=== PATIENT | male | born 1995 | race Caucasian/White ===

== ENCOUNTER 2023-01-31 12:05 | Inpatient (IN) ==
[2023-02-03] MEDS ORDERED: Senna TAB 8.6 mg TAB PO PRN (12:55)
[2023-02-03] MEDS ORDERED: Magnesium Hydroxide LIQ 30 ML UDC PO PRN (12:55)
[2023-02-03] MEDS ORDERED: Albuterol HFA INHALER 8 gm MDI INH PRN (19:29)
[2023-02-04] MEDS: Polyethylene Glycol 3350 17 GM PACKET PO SCH ×2 (07:40→07:58)
[2023-02-04] MEDS ORDERED: Ondansetron ODT 4 mg TAB 4 MG TAB PO ONE (08:15)
[2023-02-04] MEDS ORDERED: LevoCETirizine 5 mg TAB (NF) PO ONE (22:13)
[2023-02-04] MEDS: PTO: LevoCETirizine 5 mg TAB (NF) PO SCH (23:32)
[2023-02-05 07:30] LABS: Hematocrit 25.7 % (38-53); Hemoglobin 8.6 g/dL (13.2-16.3); Mean Corpuscular Hemoglobin 29.1 pg (27-33); Mean Corpuscular Hgb Conc 33.5 g/dL (31-36); Red Blood Count 2.95 10^6/uL (4.06-5.63); Red Cell Distribution Width 14.8 % (12-17)
[2023-02-05 07:38] LABS: Albumin 2.7 g/dL (3.2-5.2); Calcium 7.7 mg/dL (8.6-10.3); Potassium 4.1 mmol/L (3.5-5.0); Total Bilirubin 0.6 mg/dL (0.2-1.0)
[2023-02-05 07:44] LABS: Albumin/Globulin Ratio 0.7 (1-3); Creatinine, Serum 0.49 mg/dL (0.67-1.17); Globulin 3.8 g/dL (2-4); Total Protein 6.5 g/dL (6.4-8.9); eGFR CKD-EPI 145.1 (>60)
[2023-02-05 08:06] LABS: ABS Basophils 0.1 10^3/uL (0.0-0.1); ABS Eosinophils 0.1 10^3/uL (0.0-0.5); ABS Lymphocytes 1.4 10^3/uL (1.0-4.8); ABS Monocytes 1.7 10^3/uL (0.0-1.1); ABS Neutrophils 11.9 10^3/uL (1.5-7.6); ABS Nucleated RBC 0.01 10^3/ul; Eosinophil % 0.6 %; Mean Platelet Volume 6.5 fL (7.5-11.2); Nucleated Red Blood Cells % 0.1 /100 WBC (0.0-0.4); Platelet Count 1190 10^3/uL (150-450); Polychromasia 1+
[2023-02-05] MEDS: Polyethylene Glycol 3350 17 GM PACKET PO SCH (08:22)
[2023-02-05] MEDS: oxyCODONE SR 20 mg TAB PO SCH (21:25)
[2023-02-05] MEDS: PTO: LevoCETirizine 5 mg TAB (NF) PO SCH (21:26)
[2023-02-05 21:57] LABS: ABS Basophils 0.1 10^3/uL (0.0-0.1); ABS Eosinophils 0.1 10^3/uL (0.0-0.5); ABS Lymphocytes 1.3 10^3/uL (1.0-4.8); ABS Monocytes 1.1 10^3/uL (0.0-1.1); ABS Neutrophils 12.3 10^3/uL (1.5-7.6); ABS Nucleated RBC 0.01 10^3/ul; Eosinophil % 0.4 %; Hematocrit 26.7 % (38-53); Hemoglobin 8.9 g/dL (13.2-16.3); Lymphocyte % 8.6 %; Mean Corpuscular Hemoglobin 28.9 pg (27-33); Mean Corpuscular Hgb Conc 33.1 g/dL (31-36); Mean Corpuscular Volume 87.2 fL (80-97); Mean Platelet Volume 6.3 fL (7.5-11.2); Nucleated Red Blood Cells % 0.1 /100 WBC (0.0-0.4); Platelet Count 1354 10^3/uL (150-450); Red Blood Count 3.06 10^6/uL (4.06-5.63); Red Cell Distribution Width 15.2 % (12-17); White Blood Count 14.9 10^3/uL (3.6-10.2)
[2023-02-06] MEDS: oxyCODONE SR 20 mg TAB PO SCH ×2 (09:23→22:02)
[2023-02-06] MEDS: Polyethylene Glycol 3350 17 GM PACKET PO SCH (09:24)
[2023-02-06] MEDS ORDERED: Naloxone Nasal Spray 4 MG/0.1 ML NASAL.SPR INTRANASAL PRN (13:40)
[2023-02-06] MEDS ORDERED: Iohexol 350 (CONTRAST) 500 ML MDV IV ONE (13:54)
[2023-02-06] MEDS ORDERED: HYDROmorphone 1 MG/1 ML SYRINGE IV SLOW PU ONE (14:30)
[2023-02-06] MEDS ORDERED: Zosyn per Pharmacy NOTE FOLLOW UP SCH (20:00)
[2023-02-06] MEDS ORDERED: Piperacillin/Tazobac 3.375 BAG 3.375 GM/100 ML BAG IV ONE (20:00)
[2023-02-06] MEDS: PTO: LevoCETirizine 5 mg TAB (NF) PO SCH (22:04)
[2023-02-07] MEDS: ZOSYN 3.375 GM Q8H per EXTENDED INFUSION IV SCH ×2 (02:10→09:58)
[2023-02-07 07:43] LABS: ABS Eosinophils 0.1 10^3/uL (0.0-0.5); ABS Lymphocytes 1.4 10^3/uL (1.0-4.8); ABS Monocytes 1.3 10^3/uL (0.0-1.1); ABS Neutrophils 11.1 10^3/uL (1.5-7.6); ABS Nucleated RBC 0.01 10^3/ul; Eosinophil % 0.7 %; Hematocrit 29.2 % (38-53); Hemoglobin 9.7 g/dL (13.2-16.3); Lymphocyte % 10.3 %; Mean Corpuscular Hemoglobin 29.2 pg (27-33); Mean Corpuscular Hgb Conc 33.1 g/dL (31-36); Mean Corpuscular Volume 88.1 fL (80-97); Mean Platelet Volume 6.5 fL (7.5-11.2); Nucleated Red Blood Cells % 0.1 /100 WBC (0.0-0.4); Platelet Count 1443 10^3/uL (150-450); Red Blood Count 3.31 10^6/uL (4.06-5.63)
[2023-02-07] MEDS: oxyCODONE SR 20 mg TAB PO SCH (08:52)
[2023-02-07] MEDS: Polyethylene Glycol 3350 17 GM PACKET PO SCH (08:54)
[2023-02-07 11:38] LABS: Rapid COVID-19 Molecular Undetected (Undetected)
[2023-02-07] MEDS ORDERED: HYDROmorphone 1 MG/1 ML SYRINGE IV ONE (13:00)
[2023-02-07 14:16] VITALS: BP 116/48
== END 2023-02-07 13:58 | disposition short-term general hospital (02) | DRG 860 ==
LOC: PMRU 02-03 12:21
PROVIDERS: ADMIT Physical Medicine & Rehabilitation; ATTEND Physical Medicine & Rehabilitation

== ENCOUNTER 2023-02-24 08:30 | Inpatient (IN) ==
[2023-02-24] MEDS ORDERED: Senna TAB 8.6 mg TAB PO PRN (13:59)
[2023-02-24] MEDS ORDERED: Magnesium Hydroxide LIQ 30 ML UDC PO PRN (13:59)
[2023-02-24] MEDS ORDERED: HYDROmorphone 1 MG/1 ML SYRINGE IV SLOW PU ONE (14:06)
[2023-02-24] MEDS ORDERED: Zosyn per Pharmacy NOTE FOLLOW UP SCH (18:00)
[2023-02-24] MEDS: Piperacillin/Tazobactam 4.5 GM in NS 0.9% 100 ml BAG 100 ML IVPB SCH (19:30)
[2023-02-24] MEDS: Enoxaparin 40 MG/0.4 ML SYR SUBCUT SCH (21:10)
[2023-02-24] MEDS ORDERED: oxyCODONE SR 15 mg TAB PO ONE (21:27)
[2023-02-25] MEDS: Piperacillin/Tazobactam 4.5 GM in NS 0.9% 100 ml BAG 100 ML IVPB SCH ×4 (02:01→20:14)
[2023-02-25] MEDS: oxyCODONE SR 15 mg TAB PO SCH ×2 (08:27→20:14)
[2023-02-25] MEDS: Enoxaparin 40 MG/0.4 ML SYR SUBCUT SCH ×2 (08:28→20:17)
[2023-02-25 15:04] LABS: High Sensitivity Troponin 1 Hr < 3 pg/mL (<20)
[2023-02-26] MEDS: Piperacillin/Tazobactam 4.5 GM in NS 0.9% 100 ml BAG 100 ML IVPB SCH ×2 (04:55→15:02)
[2023-02-26 05:08] LABS: ABS Basophils 0.1 10^3/uL (0.0-0.1); ABS Eosinophils 0.2 10^3/uL (0.0-0.5); ABS Lymphocytes 1.8 10^3/uL (1.0-4.8); ABS Monocytes 0.7 10^3/uL (0.0-1.1); ABS Nucleated RBC 0.01 10^3/ul; Eosinophil % 2.4 %; Hematocrit 25.9 % (38-53); Hemoglobin 8.7 g/dL (13.2-16.3); Lymphocyte % 20.3 %; Mean Corpuscular Hemoglobin 28.9 pg (27-33); Mean Corpuscular Hgb Conc 33.6 g/dL (31-36); Mean Corpuscular Volume 85.9 fL (80-97); Mean Platelet Volume 6.1 fL (7.5-11.2); Nucleated Red Blood Cells % 0.1 /100 WBC (0.0-0.4); Platelet Count 476 10^3/uL (150-450); Red Blood Count 3.01 10^6/uL (4.06-5.63); Red Cell Distribution Width 16.2 % (12-17); White Blood Count 8.8 10^3/uL (3.6-10.2)
[2023-02-26 05:24] LABS: Albumin 2.5 g/dL (3.2-5.2); Albumin/Globulin Ratio 0.9 (1-3); Calcium 7.5 mg/dL (8.6-10.3); Creatinine, Serum 0.45 mg/dL (0.67-1.17); Globulin 2.9 g/dL (2-4); Potassium 3.1 mmol/L (3.5-5.0); Total Bilirubin 0.2 mg/dL (0.2-1.0); Total Protein 5.4 g/dL (6.4-8.9); eGFR CKD-EPI 148.9 (>60)
[2023-02-26] MEDS: oxyCODONE SR 15 mg TAB PO SCH ×2 (08:55→21:24)
[2023-02-26] MEDS: Enoxaparin 40 MG/0.4 ML SYR SUBCUT SCH ×2 (09:00→21:24)
[2023-02-26] MEDS ORDERED: Potassium Chlor 20 meq TAB.ER PO ONE (11:45)
[2023-02-26] MEDS: Potassium Chlor 20 meq TAB.ER PO SCH (21:25)
[2023-02-26 22:09] LABS: C Reactive Protein 17.07 mg/L (<8.01)
[2023-02-27] MEDS: Piperacillin/Tazobactam 4.5 GM in NS 0.9% 100 ml BAG 100 ML IVPB SCH ×3 (00:11→13:15)
[2023-02-27] MEDS: Potassium Chlor 20 meq TAB.ER PO SCH ×2 (08:41→21:15)
[2023-02-27] MEDS: oxyCODONE SR 15 mg TAB PO SCH ×2 (08:42→21:14)
[2023-02-27] MEDS: Enoxaparin 40 MG/0.4 ML SYR SUBCUT SCH ×2 (14:53→21:13)
[2023-02-27] MEDS: Piperacillin/Tazobactam 4.5 GM in NS 0.9% 100 ml BAG 100 ML IV SCH ×2 (16:17→23:59)
[2023-02-28 07:49] LABS: Creatinine, Serum 0.55 mg/dL (0.67-1.17); Potassium 3.7 mmol/L (3.5-5.0); eGFR CKD-EPI 140.2 (>60)
[2023-02-28] MEDS: Piperacillin/Tazobactam 4.5 GM in NS 0.9% 100 ml BAG 100 ML IV SCH ×2 (08:31→19:17)
[2023-02-28] MEDS: oxyCODONE SR 15 mg TAB PO SCH ×2 (08:37→21:16)
[2023-02-28] MEDS ORDERED: Alteplase (CATHFLO) 2 MG VIAL IV ONE ×2 (10:26→16:41)
[2023-02-28] MEDS: Enoxaparin 40 MG/0.4 ML SYR SUBCUT SCH ×2 (12:23→21:14)
[2023-03-01] MEDS: Piperacillin/Tazobactam 4.5 GM in NS 0.9% 100 ml BAG 100 ML IV SCH ×3 (04:08→19:22)
[2023-03-01] MEDS: oxyCODONE SR 15 mg TAB PO SCH ×2 (08:02→20:10)
[2023-03-01] MEDS: Enoxaparin 40 MG/0.4 ML SYR SUBCUT SCH ×2 (11:05→20:11)
[2023-03-01 18:28] LABS: Hematocrit 26.6 % (38-53); Hemoglobin 8.9 g/dL (13.2-16.3); Mean Corpuscular Hemoglobin 28.5 pg (27-33); Mean Corpuscular Hgb Conc 33.4 g/dL (31-36); Mean Corpuscular Volume 85.2 fL (80-97); Platelet Count 485 10^3/uL (150-450); Red Blood Count 3.12 10^6/uL (4.06-5.63); Red Cell Distribution Width 15.7 % (12-17); White Blood Count 9.9 10^3/uL (3.6-10.2)
[2023-03-01 19:43] LABS: Urine Appearance Clear; Urine Bilirubin Negative (Negative); Urine Blood Negative (Negative); Urine Color Yellow; Urine Glucose Negative (Negative); Urine Ketones Negative (Negative); Urine Nitrite Negative (Negative); Urine Protein Negative (Negative); Urine Specific Gravity 1.017 (1.002-1.030); Urine Urobilinogen Negative (Negative)
[2023-03-02] MEDS: Piperacillin/Tazobactam 4.5 GM in NS 0.9% 100 ml BAG 100 ML IV SCH ×3 (03:32→19:19)
[2023-03-02] MEDS: oxyCODONE SR 15 mg TAB PO SCH ×2 (08:17→20:19)
[2023-03-02] MEDS: Enoxaparin 40 MG/0.4 ML SYR SUBCUT SCH ×2 (09:47→21:14)
[2023-03-03] MEDS: Piperacillin/Tazobactam 4.5 GM in NS 0.9% 100 ml BAG 100 ML IV SCH ×3 (03:24→19:36)
[2023-03-03] MEDS: Enoxaparin 40 MG/0.4 ML SYR SUBCUT SCH ×2 (08:06→21:20)
[2023-03-03] MEDS: oxyCODONE SR 15 mg TAB PO SCH ×2 (08:40→21:20)
[2023-03-04] MEDS: Piperacillin/Tazobactam 4.5 GM in NS 0.9% 100 ml BAG 100 ML IV SCH ×3 (03:56→19:30)
[2023-03-04] MEDS: oxyCODONE SR 15 mg TAB PO SCH ×2 (08:24→20:59)
[2023-03-04] MEDS: Enoxaparin 40 MG/0.4 ML SYR SUBCUT SCH ×2 (11:55→20:59)
[2023-03-05] MEDS: Piperacillin/Tazobactam 4.5 GM in NS 0.9% 100 ml BAG 100 ML IV SCH ×3 (03:58→19:48)
[2023-03-05 04:18] LABS: ABS Basophils 0.1 10^3/uL (0.0-0.1); ABS Eosinophils 0.2 10^3/uL (0.0-0.5); ABS Lymphocytes 1.5 10^3/uL (1.0-4.8); ABS Monocytes 0.7 10^3/uL (0.0-1.1); ABS Neutrophils 5.1 10^3/uL (1.5-7.6); Eosinophil % 2.9 %; Hematocrit 24.1 % (38-53); Hemoglobin 8.1 g/dL (13.2-16.3); Lymphocyte % 20.3 %; Mean Corpuscular Hemoglobin 27.7 pg (27-33); Mean Corpuscular Hgb Conc 33.5 g/dL (31-36); Mean Corpuscular Volume 82.6 fL (80-97); Mean Platelet Volume 6.2 fL (7.5-11.2); Platelet Count 546 10^3/uL (150-450); Red Blood Count 2.92 10^6/uL (4.06-5.63); Red Cell Distribution Width 17.2 % (12-17); White Blood Count 7.6 10^3/uL (3.6-10.2)
[2023-03-05 05:02] LABS: Albumin 2.7 g/dL (3.2-5.2); Calcium 9.4 mg/dL (8.6-10.3); Creatinine, Serum 0.66 mg/dL (0.67-1.17); Globulin 3.1 g/dL (2-4); Potassium 3.8 mmol/L (3.5-5.0); Total Protein 5.8 g/dL (6.4-8.9); eGFR CKD-EPI 132.7 (>60)
[2023-03-05 05:03] LABS: Albumin/Globulin Ratio 0.9 (1-3); C Reactive Protein 103.11 mg/L (<8.01); Total Bilirubin 0.2 mg/dL (0.2-1.0)
[2023-03-05] MEDS: oxyCODONE SR 15 mg TAB PO SCH ×2 (09:47→21:35)
[2023-03-05] MEDS: Enoxaparin 40 MG/0.4 ML SYR SUBCUT SCH ×2 (11:26→21:36)
[2023-03-06] MEDS: Piperacillin/Tazobactam 4.5 GM in NS 0.9% 100 ml BAG 100 ML IV SCH ×3 (03:03→19:42)
[2023-03-06] MEDS: oxyCODONE SR 15 mg TAB PO SCH ×2 (08:22→21:21)
[2023-03-06] MEDS: Enoxaparin 40 MG/0.4 ML SYR SUBCUT SCH ×2 (12:00→21:21)
[2023-03-07] MEDS: Piperacillin/Tazobactam 4.5 GM in NS 0.9% 100 ml BAG 100 ML IV SCH ×2 (03:33→12:00)
[2023-03-07 05:48] LABS: ABS Eosinophils 0.2 10^3/uL (0.0-0.5); ABS Lymphocytes 1.7 10^3/uL (1.0-4.8); ABS Monocytes 0.6 10^3/uL (0.0-1.1); ABS Neutrophils 4.2 10^3/uL (1.5-7.6); Eosinophil % 3.6 %; Hematocrit 24.4 % (38-53); Hemoglobin 8.3 g/dL (13.2-16.3); Lymphocyte % 25.4 %; Mean Corpuscular Hemoglobin 27.7 pg (27-33); Mean Corpuscular Hgb Conc 33.9 g/dL (31-36); Mean Corpuscular Volume 81.9 fL (80-97); Mean Platelet Volume 5.8 fL (7.5-11.2); Nucleated Red Blood Cells % 0.1 /100 WBC (0.0-0.4); Platelet Count 583 10^3/uL (150-450); Red Blood Count 2.98 10^6/uL (4.06-5.63); Red Cell Distribution Width 17.2 % (12-17); White Blood Count 6.8 10^3/uL (3.6-10.2)
[2023-03-07 06:04] LABS: Albumin 2.9 g/dL (3.2-5.2); Albumin/Globulin Ratio 0.8 (1-3); C Reactive Protein 54.51 mg/L (<8.01); Calcium 10.1 mg/dL (8.6-10.3); Creatinine, Serum 0.66 mg/dL (0.67-1.17); Globulin 3.5 g/dL (2-4); Potassium 3.2 mmol/L (3.5-5.0); Total Bilirubin 0.2 mg/dL (0.2-1.0); Total Protein 6.4 g/dL (6.4-8.9); eGFR CKD-EPI 132.7 (>60)
[2023-03-07] MEDS ORDERED: Iohexol 300 (CONTRAST) 10 ML SDV IV ONE (07:51)
[2023-03-07] MEDS ORDERED: Potassium Chlor 20 meq TAB.ER PO SCH (09:00)
[2023-03-07] MEDS: oxyCODONE SR 15 mg TAB PO SCH (09:05)
[2023-03-07] MEDS: Enoxaparin 40 MG/0.4 ML SYR SUBCUT SCH (11:56)
[2023-03-07 13:43] VITALS: BP 98/66
== END 2023-03-07 15:20 | disposition short-term general hospital (02) | DRG 860 ==
LOC: PMRU 13:15
PROVIDERS: ADMIT Physical Medicine & Rehabilitation; ATTEND Physical Medicine & Rehabilitation

== ENCOUNTER 2023-04-25 10:59 | Inpatient (IN) ==
[2023-04-25] MEDS ORDERED: Al Hydrox/Mg Hydrox/Simet LIQ 30 ML UDC PO PRN (11:53)
[2023-04-25] MEDS ORDERED: Senna TAB 8.6 mg TAB PO PRN (11:53)
[2023-04-25] MEDS ORDERED: HYDROmorphone 1 MG/1 ML SYRINGE IV ONE (11:58)
[2023-04-25] MEDS ORDERED: Naloxone Nasal Spray 4 MG/0.1 ML NASAL.SPR INTRANASAL PRN (12:14)
[2023-04-25] MEDS ORDERED: Alteplase (CATHFLO) 2 MG VIAL IV ONE (12:50)
[2023-04-25] MEDS ORDERED: HYDROmorphone 0.5 MG/0.5 ML SYRINGE IV ONE (13:00)
[2023-04-25] MEDS: cefTRIAXone 2 gm/50 mL D5W 2 GM/50 ML BAG IV SCH (20:59)
[2023-04-25] MEDS: oxyCODONE SR 20 mg TAB PO SCH (21:02)
[2023-04-25] MEDS: Enoxaparin 40 MG/0.4 ML SYR SUBCUT SCH (21:07)
[2023-04-25] MEDS: Nystatin TOP POWDER 15 GM BTL TOPICAL SCH (21:54)
[2023-04-26 07:25] LABS: ABS Lymphocytes 1.3 10^3/uL (1.0-4.8); ABS Monocytes 0.9 10^3/uL (0.0-1.1); ABS Neutrophils 10.5 10^3/uL (1.5-7.6); Eosinophil % 0.2 %; Hematocrit 20.9 % (38-53); Hemoglobin 6.9 g/dL (13.2-16.3); Lymphocyte % 10.5 %; Mean Corpuscular Hemoglobin 25.3 pg (27-33); Mean Corpuscular Hgb Conc 32.9 g/dL (31-36); Mean Corpuscular Volume 76.9 fL (80-97); Mean Platelet Volume 6.1 fL (7.5-11.2); Platelet Count 574 10^3/uL (150-450); Red Blood Count 2.72 10^6/uL (4.06-5.63); Red Cell Distribution Width 17.7 % (12-17); White Blood Count 12.8 10^3/uL (3.6-10.2)
[2023-04-26 07:46] LABS: Albumin 2.4 g/dL (3.2-5.2); Albumin/Globulin Ratio 0.7 (1-3); C Reactive Protein 153.65 mg/L (<8.01); Calcium 8.1 mg/dL (8.6-10.3); Creatinine, Serum 0.44 mg/dL (0.67-1.17); Globulin 3.4 g/dL (2-4); Magnesium 1.5 mg/dL (1.9-2.7); Potassium 3.3 mmol/L (3.5-5.0); Total Bilirubin 0.2 mg/dL (0.2-1.0); Total Protein 5.8 g/dL (6.4-8.9); eGFR CKD-EPI 149.9 (>60)
[2023-04-26] MEDS ORDERED: Magnesium Sulf 4 GM/100 ML IV 4,000 MG/100 ML BAG IVPB ONE (08:36)
[2023-04-26] MEDS: oxyCODONE SR 20 mg TAB PO SCH ×2 (08:39→21:16)
[2023-04-26] MEDS: cefTRIAXone 2 gm/50 mL D5W 2 GM/50 ML BAG IV SCH ×2 (08:40→20:06)
[2023-04-26] MEDS: KCL 20 MEQ/100 ML IVPREMIX 20 MEQ/100 ML BAG IV SCH ×2 (09:37→21:20)
[2023-04-26] MEDS ORDERED: Morphine 10 MG/ML VIAL (1 ml) IV ONE (10:30)
[2023-04-26] MEDS ORDERED: Morphine 2 MG/ML SYRINGE IV ONE (10:45)
[2023-04-26] MEDS: Multivitamins/Minerals TAB PO SCH (10:54)
[2023-04-26] MEDS: Enoxaparin 40 MG/0.4 ML SYR SUBCUT SCH ×2 (11:25→22:41)
[2023-04-26] MEDS: Nystatin TOP POWDER 15 GM BTL TOPICAL SCH ×2 (13:01→21:18)
[2023-04-26] MEDS: Potassium Chlor 20 meq TAB.ER PO SCH (21:19)
[2023-04-26 22:29] LABS: Folate 5.64 ng/mL (5.90-24.80)
[2023-04-27 07:52] LABS: ABS Basophils 0.1 10^3/uL (0.0-0.1); ABS Lymphocytes 1.7 10^3/uL (1.0-4.8); ABS Monocytes 0.8 10^3/uL (0.0-1.1); ABS Neutrophils 8.8 10^3/uL (1.5-7.6); Eosinophil % 0.3 %; Hemoglobin 9.2 g/dL (13.2-16.3); Lymphocyte % 14.8 %; Mean Corpuscular Hemoglobin 26.9 pg (27-33); Mean Platelet Volume 5.9 fL (7.5-11.2); Platelet Count 620 10^3/uL (150-450); Red Blood Count 3.42 10^6/uL (4.06-5.63); Red Cell Distribution Width 17.5 % (12-17); White Blood Count 11.4 10^3/uL (3.6-10.2)
[2023-04-27] MEDS: Multivitamins/Minerals TAB PO SCH (07:59)
[2023-04-27] MEDS: Potassium Chlor 20 meq TAB.ER PO SCH ×2 (08:00→21:00)
[2023-04-27] MEDS: oxyCODONE SR 20 mg TAB PO SCH (08:00)
[2023-04-27 08:16] LABS: Calcium 8.1 mg/dL (8.6-10.3); Creatinine, Serum 0.34 mg/dL (0.67-1.17); Magnesium 1.9 mg/dL (1.9-2.7); Potassium 3.5 mmol/L (3.5-5.0); eGFR CKD-EPI 162.1 (>60)
[2023-04-27] MEDS: cefTRIAXone 2 gm/50 mL D5W 2 GM/50 ML BAG IV SCH ×2 (09:15→21:16)
[2023-04-27] MEDS: Nystatin TOP POWDER 15 GM BTL TOPICAL SCH ×2 (09:59→21:02)
[2023-04-27] MEDS: Morphine ORAL.SOLN 10 mg 2 mg/ml UDC 5 ml (10 mg) PO PRN ×3 (10:36→22:12)
[2023-04-27] MEDS: Enoxaparin 40 MG/0.4 ML SYR SUBCUT SCH ×2 (10:38→21:02)
[2023-04-27] MEDS: Morphine ER 30 mg TAB ** extended release PO SCH (20:01)
[2023-04-28] MEDS: Morphine ORAL.SOLN 10 mg 2 mg/ml UDC 5 ml (10 mg) PO PRN ×3 (03:58→17:53)
[2023-04-28 04:20] LABS: ABS Lymphocytes 1.5 10^3/uL (1.0-4.8); ABS Monocytes 0.8 10^3/uL (0.0-1.1); ABS Neutrophils 9.5 10^3/uL (1.5-7.6); Eosinophil % 0.3 %; Hematocrit 27.4 % (38-53); Hemoglobin 9.3 g/dL (13.2-16.3); Lymphocyte % 12.4 %; Mean Corpuscular Hemoglobin 26.4 pg (27-33); Mean Corpuscular Hgb Conc 33.7 g/dL (31-36); Mean Corpuscular Volume 78.2 fL (80-97); Mean Platelet Volume 5.9 fL (7.5-11.2); Platelet Count 688 10^3/uL (150-450); Red Blood Count 3.51 10^6/uL (4.06-5.63); White Blood Count 11.8 10^3/uL (3.6-10.2)
[2023-04-28 04:37] LABS: C Reactive Protein 105.97 mg/L (<8.01)
[2023-04-28 05:18] LABS: Ferritin 237.2 ng/mL (24-336)
[2023-04-28 05:42] LABS: % Iron Saturation 17 % (15-55); .Transferrin 83 mg/dL (203-362); Iron < 20 ug/dL (50-212); Total Iron Binding Capacity 116 mcg/dL (250-450); Unsaturated Iron Binding 96 ug/dL
[2023-04-28] MEDS: Morphine ER 30 mg TAB ** extended release PO SCH ×2 (07:37→20:06)
[2023-04-28] MEDS: Multivitamins/Minerals TAB PO SCH (07:38)
[2023-04-28] MEDS: Potassium Chlor 20 meq TAB.ER PO SCH ×2 (07:38→20:06)
[2023-04-28] MEDS: Enoxaparin 40 MG/0.4 ML SYR SUBCUT SCH ×2 (07:40→20:07)
[2023-04-28] MEDS: cefTRIAXone 2 gm/50 mL D5W 2 GM/50 ML BAG IV SCH ×2 (10:03→21:22)
[2023-04-28] MEDS: Nystatin TOP POWDER 15 GM BTL TOPICAL SCH ×2 (10:11→20:07)
[2023-04-29] MEDS: Morphine ORAL.SOLN 10 mg 2 mg/ml UDC 5 ml (10 mg) PO PRN ×3 (02:00→18:30)
[2023-04-29] MEDS: Multivitamins/Minerals TAB PO SCH (09:04)
[2023-04-29] MEDS: Potassium Chlor 20 meq TAB.ER PO SCH ×2 (09:04→20:52)
[2023-04-29] MEDS: Morphine ER 30 mg TAB ** extended release PO SCH ×2 (09:05→20:51)
[2023-04-29] MEDS: cefTRIAXone 2 gm/50 mL D5W 2 GM/50 ML BAG IV SCH ×2 (09:23→20:50)
[2023-04-29] MEDS: Enoxaparin 40 MG/0.4 ML SYR SUBCUT SCH ×2 (12:19→20:52)
[2023-04-29] MEDS: Nystatin TOP POWDER 15 GM BTL TOPICAL SCH ×2 (12:23→21:49)
[2023-04-29] MEDS ORDERED: Lactated Ringers 1000 ml BAG 1,000 ML IV ONE (18:48)
[2023-04-30] MEDS: Morphine ORAL.SOLN 10 mg 2 mg/ml UDC 5 ml (10 mg) PO PRN ×5 (01:30→21:07)
[2023-04-30] MEDS ORDERED: Lactated Ringers 1000 ml BAG 1,000 ML IV ONE (01:52)
[2023-04-30 05:25] LABS: ABS Eosinophils 0.1 10^3/uL (0.0-0.5); ABS Lymphocytes 2.1 10^3/uL (1.0-4.8); ABS Neutrophils 9.4 10^3/uL (1.5-7.6); ABS Nucleated RBC 0.01 10^3/ul; Eosinophil % 0.5 %; Hematocrit 26.3 % (38-53); Hemoglobin 8.6 g/dL (13.2-16.3); Lymphocyte % 16.5 %; Mean Corpuscular Hemoglobin 25.9 pg (27-33); Mean Corpuscular Hgb Conc 32.7 g/dL (31-36); Mean Corpuscular Volume 79.1 fL (80-97); Nucleated Red Blood Cells % 0.1 %/100WBC (0.0-0.8); Platelet Count 712 10^3/uL (150-450); Red Blood Count 3.33 10^6/uL (4.06-5.63); Red Cell Distribution Width 18.4 % (12-17); White Blood Count 12.6 10^3/uL (3.6-10.2)
[2023-04-30 05:45] LABS: Calcium 8.1 mg/dL (8.6-10.3)
[2023-04-30 05:51] LABS: Creatinine, Serum 0.35 mg/dL (0.67-1.17); eGFR CKD-EPI 160.7 (>60)
[2023-04-30] MEDS: Morphine ER 30 mg TAB ** extended release PO SCH ×2 (07:36→19:55)
[2023-04-30] MEDS: cefTRIAXone 2 gm/50 mL D5W 2 GM/50 ML BAG IV SCH ×2 (10:04→21:17)
[2023-04-30] MEDS: Potassium Chlor 20 meq TAB.ER PO SCH ×2 (12:39→21:06)
[2023-04-30] MEDS: Multivitamins/Minerals TAB PO SCH (12:40)
[2023-04-30] MEDS: Enoxaparin 40 MG/0.4 ML SYR SUBCUT SCH ×2 (12:41→21:07)
[2023-04-30] MEDS: Nystatin TOP POWDER 15 GM BTL TOPICAL SCH ×2 (14:11→21:18)
[2023-04-30] MEDS: Senna TAB 8.6 mg TAB PO SCH (21:18)
[2023-05-01] MEDS: Morphine ORAL.SOLN 10 mg 2 mg/ml UDC 5 ml (10 mg) PO PRN ×3 (03:06→16:37)
[2023-05-01] MEDS: Multivitamins/Minerals TAB PO SCH (08:17)
[2023-05-01] MEDS: Potassium Chlor 20 meq TAB.ER PO SCH ×2 (08:17→20:56)
[2023-05-01] MEDS: Morphine ER 30 mg TAB ** extended release PO SCH ×2 (08:19→20:00)
[2023-05-01] MEDS: Polyethylene Glycol 3350 17 GM PACKET PO SCH (08:30)
[2023-05-01] MEDS: Nystatin TOP POWDER 15 GM BTL TOPICAL SCH ×2 (09:00→20:13)
[2023-05-01] MEDS: cefTRIAXone 2 gm/50 mL D5W 2 GM/50 ML BAG IV SCH ×2 (09:13→20:01)
[2023-05-01] MEDS: Enoxaparin 40 MG/0.4 ML SYR SUBCUT SCH ×2 (12:37→20:55)
[2023-05-01] MEDS: Senna TAB 8.6 mg TAB PO SCH (20:13)
[2023-05-02] MEDS: Morphine ORAL.SOLN 10 mg 2 mg/ml UDC 5 ml (10 mg) PO PRN ×4 (00:22→18:18)
[2023-05-02 08:04] LABS: ABS Eosinophils 0.1 10^3/uL (0.0-0.5); ABS Lymphocytes 1.8 10^3/uL (1.0-4.8); ABS Monocytes 1.1 10^3/uL (0.0-1.1); ABS Neutrophils 9.6 10^3/uL (1.5-7.6); Eosinophil % 0.5 %; Hematocrit 27.7 % (38-53); Hemoglobin 8.9 g/dL (13.2-16.3); Lymphocyte % 14.4 %; Mean Corpuscular Hemoglobin 25.7 pg (27-33); Mean Corpuscular Hgb Conc 32.2 g/dL (31-36); Mean Corpuscular Volume 79.7 fL (80-97); Platelet Count 760 10^3/uL (150-450); Red Blood Count 3.47 10^6/uL (4.06-5.63); Red Cell Distribution Width 18.5 % (12-17); White Blood Count 12.5 10^3/uL (3.6-10.2)
[2023-05-02 08:09] LABS: Albumin 2.7 g/dL (3.2-5.2); Calcium 8.7 mg/dL (8.6-10.3); Magnesium 1.7 mg/dL (1.9-2.7); Total Bilirubin 0.2 mg/dL (0.2-1.0)
[2023-05-02] MEDS: Morphine ER 30 mg TAB ** extended release PO SCH ×2 (08:13→20:53)
[2023-05-02 08:15] LABS: Albumin/Globulin Ratio 0.7 (1-3); C Reactive Protein 119.56 mg/L (<8.01); Creatinine, Serum 0.35 mg/dL (0.67-1.17); Globulin 3.8 g/dL (2-4); Total Protein 6.5 g/dL (6.4-8.9); eGFR CKD-EPI 160.7 (>60)
[2023-05-02] MEDS: Potassium Chlor 20 meq TAB.ER PO SCH ×2 (08:56→20:52)
[2023-05-02] MEDS: Multivitamins/Minerals TAB PO SCH (08:57)
[2023-05-02] MEDS: cefTRIAXone 2 gm/50 mL D5W 2 GM/50 ML BAG IV SCH ×2 (09:05→20:55)
[2023-05-02] MEDS: Polyethylene Glycol 3350 17 GM PACKET PO SCH (09:07)
[2023-05-02] MEDS: Enoxaparin 40 MG/0.4 ML SYR SUBCUT SCH ×2 (10:04→20:51)
[2023-05-02] MEDS: Nystatin TOP POWDER 15 GM BTL TOPICAL SCH ×2 (10:05→20:55)
[2023-05-02] MEDS: Senna TAB 8.6 mg TAB PO SCH (20:55)
[2023-05-03] MEDS: Morphine ORAL.SOLN 10 mg 2 mg/ml UDC 5 ml (10 mg) PO PRN ×4 (02:21→22:35)
[2023-05-03 05:44] LABS: ABS Basophils 0.1 10^3/uL (0.0-0.1); ABS Eosinophils 0.1 10^3/uL (0.0-0.5); ABS Lymphocytes 1.7 10^3/uL (1.0-4.8); ABS Monocytes 1.1 10^3/uL (0.0-1.1); ABS Neutrophils 11.8 10^3/uL (1.5-7.6); Eosinophil % 0.7 %; Hematocrit 26.8 % (38-53); Hemoglobin 8.8 g/dL (13.2-16.3); Lymphocyte % 11.3 %; Mean Corpuscular Hgb Conc 32.8 g/dL (31-36); Mean Corpuscular Volume 79.2 fL (80-97); Mean Platelet Volume 6.1 fL (7.5-11.2); Platelet Count 802 10^3/uL (150-450); Red Blood Count 3.38 10^6/uL (4.06-5.63); Red Cell Distribution Width 18.2 % (12-17); White Blood Count 14.8 10^3/uL (3.6-10.2)
[2023-05-03 05:59] LABS: C Reactive Protein 123.79 mg/L (<8.01); Calcium 8.8 mg/dL (8.6-10.3); Creatinine, Serum 0.35 mg/dL (0.67-1.17); Potassium 4.2 mmol/L (3.5-5.0); eGFR CKD-EPI 160.7 (>60)
[2023-05-03] MEDS: Morphine ER 30 mg TAB ** extended release PO SCH ×2 (09:14→19:24)
[2023-05-03] MEDS: Polyethylene Glycol 3350 17 GM PACKET PO SCH (09:15)
[2023-05-03] MEDS: Potassium Chlor 20 meq TAB.ER PO SCH (09:15)
[2023-05-03] MEDS: Multivitamins/Minerals TAB PO SCH (09:15)
[2023-05-03] MEDS: cefTRIAXone 2 gm/50 mL D5W 2 GM/50 ML BAG IV SCH ×2 (09:19→20:44)
[2023-05-03] MEDS: Nystatin TOP POWDER 15 GM BTL TOPICAL SCH ×2 (09:32→20:44)
[2023-05-03] MEDS: Enoxaparin 40 MG/0.4 ML SYR SUBCUT SCH ×2 (11:26→20:43)
[2023-05-03] MEDS: Senna TAB 8.6 mg TAB PO SCH (20:51)
[2023-05-04] MEDS: Morphine ORAL.SOLN 10 mg 2 mg/ml UDC 5 ml (10 mg) PO PRN ×4 (05:30→23:24)
[2023-05-04] MEDS: Morphine ER 30 mg TAB ** extended release PO SCH ×2 (09:37→20:06)
[2023-05-04] MEDS: Multivitamins/Minerals TAB PO SCH (09:37)
[2023-05-04] MEDS: Potassium Chlor 20 meq TAB.ER PO SCH (09:37)
[2023-05-04] MEDS: Polyethylene Glycol 3350 17 GM PACKET PO SCH (09:38)
[2023-05-04] MEDS: cefTRIAXone 2 gm/50 mL D5W 2 GM/50 ML BAG IV SCH ×2 (09:45→21:32)
[2023-05-04] MEDS: Nystatin TOP POWDER 15 GM BTL TOPICAL SCH ×2 (09:51→20:10)
[2023-05-04] MEDS: Enoxaparin 40 MG/0.4 ML SYR SUBCUT SCH ×2 (10:47→20:06)
[2023-05-04] MEDS: Senna TAB 8.6 mg TAB PO SCH (20:10)
[2023-05-05 05:47] LABS: ABS Basophils 0.1 10^3/uL (0.0-0.1); ABS Eosinophils 0.1 10^3/uL (0.0-0.5); ABS Monocytes 1.1 10^3/uL (0.0-1.1); ABS Neutrophils 11.5 10^3/uL (1.5-7.6); Eosinophil % 0.7 %; Hematocrit 27.9 % (38-53); Hemoglobin 9.1 g/dL (13.2-16.3); Lymphocyte % 13.6 %; Mean Corpuscular Hemoglobin 25.4 pg (27-33); Mean Corpuscular Hgb Conc 32.5 g/dL (31-36); Mean Corpuscular Volume 78.1 fL (80-97); Mean Platelet Volume 5.8 fL (7.5-11.2); Platelet Count 854 10^3/uL (150-450); Red Blood Count 3.57 10^6/uL (4.06-5.63); Red Cell Distribution Width 18.6 % (12-17); White Blood Count 14.8 10^3/uL (3.6-10.2)
[2023-05-05] MEDS: Morphine ORAL.SOLN 10 mg 2 mg/ml UDC 5 ml (10 mg) PO PRN ×3 (06:01→14:29)
[2023-05-05 06:07] LABS: Albumin 2.8 g/dL (3.2-5.2); Albumin/Globulin Ratio 0.7 (1-3); Calcium 9.3 mg/dL (8.6-10.3); Creatinine, Serum 0.41 mg/dL (0.67-1.17); Globulin 4.2 g/dL (2-4); Potassium 3.9 mmol/L (3.5-5.0); Total Bilirubin 0.2 mg/dL (0.2-1.0); eGFR CKD-EPI 153.2 (>60)
[2023-05-05] MEDS: Potassium Chlor 20 meq TAB.ER PO SCH (08:39)
[2023-05-05] MEDS: Multivitamins/Minerals TAB PO SCH (08:39)
[2023-05-05] MEDS: Morphine ER 30 mg TAB ** extended release PO SCH ×2 (08:39→20:44)
[2023-05-05] MEDS: Enoxaparin 40 MG/0.4 ML SYR SUBCUT SCH ×2 (08:40→20:43)
[2023-05-05] MEDS: cefTRIAXone 2 gm/50 mL D5W 2 GM/50 ML BAG IV SCH ×2 (08:46→20:50)
[2023-05-05] MEDS: Nystatin TOP POWDER 15 GM BTL TOPICAL SCH ×2 (09:21→20:45)
[2023-05-05] MEDS: Polyethylene Glycol 3350 17 GM PACKET PO SCH (09:21)
[2023-05-05] MEDS: Senna TAB 8.6 mg TAB PO SCH (20:45)
[2023-05-06] MEDS: Morphine ORAL.SOLN 10 mg 2 mg/ml UDC 5 ml (10 mg) PO PRN ×4 (02:37→23:39)
[2023-05-06] MEDS: cefTRIAXone 2 gm/50 mL D5W 2 GM/50 ML BAG IV SCH ×2 (08:33→21:00)
[2023-05-06] MEDS: Morphine ER 30 mg TAB ** extended release PO SCH ×2 (09:44→21:00)
[2023-05-06] MEDS: Venlafaxine XR 75 mg PO SCH (09:44)
[2023-05-06] MEDS: Multivitamins/Minerals TAB PO SCH (09:45)
[2023-05-06] MEDS: Potassium Chlor 20 meq TAB.ER PO SCH (09:45)
[2023-05-06] MEDS: Polyethylene Glycol 3350 17 GM PACKET PO SCH (09:50)
[2023-05-06] MEDS: Nystatin TOP POWDER 15 GM BTL TOPICAL SCH ×2 (09:50→21:59)
[2023-05-06] MEDS: Enoxaparin 40 MG/0.4 ML SYR SUBCUT SCH ×2 (11:05→21:01)
[2023-05-06] MEDS ORDERED: HYDROmorphone 1 MG/1 ML SYRINGE IV SLOW PU ONE (16:11)
[2023-05-06] MEDS ORDERED: HYDROmorphone 0.5 MG/0.5 ML SYRINGE IV SLOW PU ONE (17:00)
[2023-05-06] MEDS: Senna TAB 8.6 mg TAB PO SCH (21:02)
[2023-05-07 04:59] LABS: ABS Eosinophils 0.1 10^3/uL (0.0-0.5); ABS Lymphocytes 1.9 10^3/uL (1.0-4.8); ABS Neutrophils 11.1 10^3/uL (1.5-7.6); ABS Nucleated RBC 0.01 10^3/ul; Eosinophil % 0.8 %; Hematocrit 27.9 % (38-53); Hemoglobin 8.9 g/dL (13.2-16.3); Lymphocyte % 13.5 %; Mean Corpuscular Hemoglobin 25.3 pg (27-33); Mean Corpuscular Volume 78.9 fL (80-97); Nucleated Red Blood Cells % 0.1 %/100WBC (0.0-0.8); Platelet Count 914 10^3/uL (150-450); Red Blood Count 3.53 10^6/uL (4.06-5.63); Red Cell Distribution Width 18.7 % (12-17); White Blood Count 14.2 10^3/uL (3.6-10.2)
[2023-05-07] MEDS: Morphine ORAL.SOLN 10 mg 2 mg/ml UDC 5 ml (10 mg) PO PRN ×3 (05:15→16:38)
[2023-05-07 05:44] LABS: Calcium 9.1 mg/dL (8.6-10.3); Potassium 4.2 mmol/L (3.5-5.0)
[2023-05-07 05:50] LABS: C Reactive Protein 98.26 mg/L (<8.01); Creatinine, Serum 0.38 mg/dL (0.67-1.17); eGFR CKD-EPI 156.7 (>60)
[2023-05-07] MEDS: cefTRIAXone 2 gm/50 mL D5W 2 GM/50 ML BAG IV SCH ×2 (08:18→21:00)
[2023-05-07] MEDS: Enoxaparin 40 MG/0.4 ML SYR SUBCUT SCH ×2 (08:20→21:02)
[2023-05-07] MEDS: Morphine ER 30 mg TAB ** extended release PO SCH ×2 (08:21→21:02)
[2023-05-07] MEDS: Multivitamins/Minerals TAB PO SCH (08:21)
[2023-05-07] MEDS: Polyethylene Glycol 3350 17 GM PACKET PO SCH (08:22)
[2023-05-07] MEDS: Venlafaxine XR 75 mg PO SCH (08:22)
[2023-05-07] MEDS: Potassium Chlor 20 meq TAB.ER PO SCH (08:22)
[2023-05-07] MEDS: Nystatin TOP POWDER 15 GM BTL TOPICAL SCH ×2 (08:23→21:03)
[2023-05-07] MEDS: Senna TAB 8.6 mg TAB PO SCH (21:03)
[2023-05-08] MEDS: Morphine ORAL.SOLN 10 mg 2 mg/ml UDC 5 ml (10 mg) PO PRN ×4 (01:23→23:54)
[2023-05-08] MEDS: Enoxaparin 40 MG/0.4 ML SYR SUBCUT SCH ×2 (08:28→20:58)
[2023-05-08] MEDS: Venlafaxine XR 75 mg PO SCH (08:29)
[2023-05-08] MEDS: Potassium Chlor 20 meq TAB.ER PO SCH (08:30)
[2023-05-08] MEDS: Multivitamins/Minerals TAB PO SCH (08:30)
[2023-05-08] MEDS: Morphine ER 30 mg TAB ** extended release PO SCH ×2 (08:30→20:57)
[2023-05-08] MEDS: Polyethylene Glycol 3350 17 GM PACKET PO SCH (08:31)
[2023-05-08] MEDS: Nystatin TOP POWDER 15 GM BTL TOPICAL SCH (08:31)
[2023-05-08] MEDS ORDERED: HYDROmorphone 1 MG/1 ML SYRINGE IV SLOW PU ONE (09:05)
[2023-05-08] MEDS: cefTRIAXone 2 gm/50 mL D5W 2 GM/50 ML BAG IV SCH ×2 (09:17→20:57)
[2023-05-08] MEDS ORDERED: HYDROmorphone 0.5 MG/0.5 ML SYRINGE IV SLOW PU ONE ×2 (10:30→16:30)
[2023-05-08] MEDS: LORazepam 2 mg VIAL 1 ml ONE ×2 (10:32→10:38)
[2023-05-08] MEDS ORDERED: Lorazepam PYXIS KEY PRN (10:36)
[2023-05-08] MEDS ORDERED: LORazepam 2 mg VIAL 1 ml IV PUSH ONE (11:00)
[2023-05-08] MEDS: Senna TAB 8.6 mg TAB PO SCH (20:13)
[2023-05-09] MEDS: Morphine ORAL.SOLN 10 mg 2 mg/ml UDC 5 ml (10 mg) PO PRN ×3 (05:36→17:58)
[2023-05-09 05:56] LABS: ABS Eosinophils 0.1 10^3/uL (0.0-0.5); ABS Neutrophils 9.2 10^3/uL (1.5-7.6); Eosinophil % 0.8 %; Hematocrit 27.1 % (38-53); Hemoglobin 8.8 g/dL (13.2-16.3); Lymphocyte % 16.5 %; Mean Corpuscular Hemoglobin 25.6 pg (27-33); Mean Corpuscular Hgb Conc 32.6 g/dL (31-36); Mean Corpuscular Volume 78.6 fL (80-97); Mean Platelet Volume 5.9 fL (7.5-11.2); Platelet Count 856 10^3/uL (150-450); Red Blood Count 3.45 10^6/uL (4.06-5.63); Red Cell Distribution Width 18.8 % (12-17); White Blood Count 12.3 10^3/uL (3.6-10.2)
[2023-05-09 06:24] LABS: Albumin 2.7 g/dL (3.2-5.2); Albumin/Globulin Ratio 0.6 (1-3); C Reactive Protein 88.89 mg/L (<8.01); Calcium 9.2 mg/dL (8.6-10.3); Creatinine, Serum 0.36 mg/dL (0.67-1.17); Globulin 4.2 g/dL (2-4); Magnesium 1.8 mg/dL (1.9-2.7); Potassium 3.8 mmol/L (3.5-5.0); Total Bilirubin 0.2 mg/dL (0.2-1.0); Total Protein 6.9 g/dL (6.4-8.9); eGFR CKD-EPI 159.3 (>60)
[2023-05-09] MEDS: Morphine ER 30 mg TAB ** extended release PO SCH ×2 (08:55→21:28)
[2023-05-09] MEDS: Multivitamins/Minerals TAB PO SCH (08:55)
[2023-05-09] MEDS: cefTRIAXone 2 gm/50 mL D5W 2 GM/50 ML BAG IV SCH ×2 (08:56→21:25)
[2023-05-09] MEDS: Potassium Chlor 20 meq TAB.ER PO SCH (08:56)
[2023-05-09] MEDS: Enoxaparin 40 MG/0.4 ML SYR SUBCUT SCH ×2 (08:56→21:29)
[2023-05-09] MEDS: Polyethylene Glycol 3350 17 GM PACKET PO SCH (08:57)
[2023-05-09] MEDS: Magnesium Chloride EC 64 mgTAB PO SCH (17:57)
[2023-05-09] MEDS: Senna TAB 8.6 mg TAB PO SCH (21:29)
[2023-05-10] MEDS: Morphine ORAL.SOLN 10 mg 2 mg/ml UDC 5 ml (10 mg) PO PRN ×4 (03:29→20:19)
[2023-05-10] MEDS ORDERED: Senna TAB 8.6 mg TAB PO PRN (08:19)
[2023-05-10] MEDS: cefTRIAXone 2 gm/50 mL D5W 2 GM/50 ML BAG IV SCH ×2 (08:55→20:21)
[2023-05-10] MEDS: Magnesium Chloride EC 64 mgTAB PO SCH (08:56)
[2023-05-10] MEDS: Morphine ER 30 mg TAB ** extended release PO SCH ×2 (08:57→21:14)
[2023-05-10] MEDS: Multivitamins/Minerals TAB PO SCH (08:57)
[2023-05-10] MEDS: Potassium Chlor 20 meq TAB.ER PO SCH (08:57)
[2023-05-10] MEDS: Polyethylene Glycol 3350 17 GM PACKET PO SCH (09:07)
[2023-05-10] MEDS: Enoxaparin 40 MG/0.4 ML SYR SUBCUT SCH ×2 (10:31→21:18)
[2023-05-11] MEDS: Morphine ORAL.SOLN 10 mg 2 mg/ml UDC 5 ml (10 mg) PO PRN ×6 (00:33→23:28)
[2023-05-11] MEDS: Magnesium Chloride EC 64 mgTAB PO SCH (09:05)
[2023-05-11] MEDS: cefTRIAXone 2 gm/50 mL D5W 2 GM/50 ML BAG IV SCH (09:06)
[2023-05-11] MEDS: Morphine ER 30 mg TAB ** extended release PO SCH ×2 (09:06→20:22)
[2023-05-11] MEDS: Enoxaparin 40 MG/0.4 ML SYR SUBCUT SCH ×2 (09:07→21:17)
[2023-05-11] MEDS: Polyethylene Glycol 3350 17 GM PACKET PO SCH (09:08)
[2023-05-11] MEDS: Potassium Chlor 20 meq TAB.ER PO SCH (09:08)
[2023-05-11] MEDS: Multivitamins/Minerals TAB PO SCH (09:08)
[2023-05-11] MEDS: Cefepime 2 GM in Dextrose 2 GM/50 ML BAG IV SCH ×2 (11:01→19:14)
[2023-05-12] MEDS: Morphine ORAL.SOLN 10 mg 2 mg/ml UDC 5 ml (10 mg) PO PRN ×4 (03:41→23:44)
[2023-05-12] MEDS: Cefepime 2 GM in Dextrose 2 GM/50 ML BAG IV SCH ×2 (03:43→12:10)
[2023-05-12 07:24] LABS: ABS Basophils 0.1 10^3/uL (0.0-0.1); ABS Eosinophils 0.1 10^3/uL (0.0-0.5); ABS Lymphocytes 1.5 10^3/uL (1.0-4.8); ABS Monocytes 0.8 10^3/uL (0.0-1.1); ABS Neutrophils 9.3 10^3/uL (1.5-7.6); Hematocrit 27.4 % (38-53); Hemoglobin 8.8 g/dL (13.2-16.3); Lymphocyte % 12.5 %; Mean Corpuscular Hemoglobin 25.2 pg (27-33); Mean Corpuscular Hgb Conc 32.2 g/dL (31-36); Mean Corpuscular Volume 78.2 fL (80-97); Mean Platelet Volume 5.8 fL (7.5-11.2); Platelet Count 725 10^3/uL (150-450); Red Blood Count 3.51 10^6/uL (4.06-5.63); Red Cell Distribution Width 18.4 % (12-17); White Blood Count 11.8 10^3/uL (3.6-10.2)
[2023-05-12 08:00] LABS: C Reactive Protein 80.42 mg/L (<8.01); Calcium 8.7 mg/dL (8.6-10.3); Creatinine, Serum 0.32 mg/dL (0.67-1.17); Magnesium 1.6 mg/dL (1.9-2.7); Potassium 3.7 mmol/L (3.5-5.0); eGFR CKD-EPI 165.1 (>60)
[2023-05-12] MEDS: Magnesium Chloride EC 64 mgTAB PO SCH (08:55)
[2023-05-12] MEDS: Multivitamins/Minerals TAB PO SCH (08:56)
[2023-05-12] MEDS: Morphine ER 30 mg TAB ** extended release PO SCH ×2 (08:56→21:17)
[2023-05-12] MEDS: Potassium Chlor 20 meq TAB.ER PO SCH (08:56)
[2023-05-12] MEDS: Polyethylene Glycol 3350 17 GM PACKET PO SCH (08:57)
[2023-05-12] MEDS: Enoxaparin 40 MG/0.4 ML SYR SUBCUT SCH ×2 (10:59→21:19)
[2023-05-13] MEDS: Multivitamins/Minerals TAB PO SCH (10:10)
[2023-05-13] MEDS: Magnesium Chloride EC 64 mgTAB PO SCH (10:10)
[2023-05-13] MEDS: Venlafaxine XR 75 mg PO SCH (10:11)
[2023-05-13] MEDS: Potassium Chlor 20 meq TAB.ER PO SCH (10:11)
[2023-05-13] MEDS: Morphine ER 30 mg TAB ** extended release PO SCH ×2 (10:11→20:22)
[2023-05-13] MEDS: Polyethylene Glycol 3350 17 GM PACKET PO SCH (10:15)
[2023-05-13] MEDS: Enoxaparin 40 MG/0.4 ML SYR SUBCUT SCH ×2 (10:15→20:22)
[2023-05-13] MEDS: Morphine ORAL.SOLN 10 mg 2 mg/ml UDC 5 ml (10 mg) PO PRN ×2 (12:13→18:24)
[2023-05-13] MEDS ORDERED: Magnesium Hydroxide LIQ 30 ML UDC ONE (18:19)
[2023-05-13] MEDS: Magnesium Hydroxide LIQ 30 ML UDC PO PRN (18:23)
[2023-05-14] MEDS: Morphine ORAL.SOLN 10 mg 2 mg/ml UDC 5 ml (10 mg) PO PRN ×4 (01:45→23:56)
[2023-05-14] MEDS: Magnesium Chloride EC 64 mgTAB PO SCH (10:15)
[2023-05-14] MEDS: Potassium Chlor 20 meq TAB.ER PO SCH (10:16)
[2023-05-14] MEDS: Morphine ER 30 mg TAB ** extended release PO SCH ×2 (10:16→21:39)
[2023-05-14] MEDS: Multivitamins/Minerals TAB PO SCH (10:16)
[2023-05-14] MEDS: Venlafaxine XR 75 mg PO SCH (10:16)
[2023-05-14] MEDS: Polyethylene Glycol 3350 17 GM PACKET PO SCH (10:27)
[2023-05-14] MEDS: Enoxaparin 40 MG/0.4 ML SYR SUBCUT SCH ×2 (11:31→21:40)
[2023-05-15] MEDS: Morphine ORAL.SOLN 10 mg 2 mg/ml UDC 5 ml (10 mg) PO PRN ×2 (06:27→22:17)
[2023-05-15] MEDS: Magnesium Chloride EC 64 mgTAB PO SCH (09:58)
[2023-05-15] MEDS: Morphine ER 30 mg TAB ** extended release PO SCH ×2 (09:59→19:14)
[2023-05-15] MEDS: Multivitamins/Minerals TAB PO SCH (09:59)
[2023-05-15] MEDS: Venlafaxine XR 75 mg PO SCH (09:59)
[2023-05-15] MEDS: Potassium Chlor 20 meq TAB.ER PO SCH (09:59)
[2023-05-15] MEDS: Polyethylene Glycol 3350 17 GM PACKET PO SCH (10:00)
[2023-05-15] MEDS: Enoxaparin 40 MG/0.4 ML SYR SUBCUT SCH ×2 (11:47→20:38)
[2023-05-16] MEDS: Morphine ORAL.SOLN 10 mg 2 mg/ml UDC 5 ml (10 mg) PO PRN (04:38)
[2023-05-16 08:27] LABS: ABS Eosinophils 0.1 10^3/uL (0.0-0.5); ABS Neutrophils 9.5 10^3/uL (1.5-7.6); ABS Nucleated RBC 0.01 10^3/ul; Eosinophil % 0.7 %; Hematocrit 27.6 % (38-53); Hemoglobin 8.9 g/dL (13.2-16.3); Lymphocyte % 15.6 %; Mean Corpuscular Hemoglobin 25.2 pg (27-33); Mean Corpuscular Hgb Conc 32.2 g/dL (31-36); Mean Corpuscular Volume 78.2 fL (80-97); Mean Platelet Volume 6.1 fL (7.5-11.2); Nucleated Red Blood Cells % 0.1 %/100WBC (0.0-0.8); Platelet Count 799 10^3/uL (150-450); Red Blood Count 3.53 10^6/uL (4.06-5.63); Red Cell Distribution Width 18.9 % (12-17); White Blood Count 12.6 10^3/uL (3.6-10.2)
[2023-05-16] MEDS: Magnesium Chloride EC 64 mgTAB PO SCH (08:48)
[2023-05-16] MEDS: Multivitamins/Minerals TAB PO SCH (08:48)
[2023-05-16] MEDS: Potassium Chlor 20 meq TAB.ER PO SCH (08:48)
[2023-05-16] MEDS: Morphine ER 30 mg TAB ** extended release PO SCH ×2 (08:49→20:48)
[2023-05-16] MEDS: Venlafaxine XR 75 mg PO SCH (08:49)
[2023-05-16] MEDS: Enoxaparin 40 MG/0.4 ML SYR SUBCUT SCH ×2 (08:51→20:48)
[2023-05-16] MEDS: Polyethylene Glycol 3350 17 GM PACKET PO SCH (08:53)
[2023-05-16 08:54] LABS: Albumin 2.9 g/dL (3.2-5.2); Albumin/Globulin Ratio 0.7 (1-3); C Reactive Protein 79.57 mg/L (<8.01); Calcium 9.1 mg/dL (8.6-10.3); Creatinine, Serum 0.36 mg/dL (0.67-1.17); Globulin 4.2 g/dL (2-4); Magnesium 1.7 mg/dL (1.9-2.7); Potassium 3.9 mmol/L (3.5-5.0); Total Bilirubin 0.2 mg/dL (0.2-1.0); Total Protein 7.1 g/dL (6.4-8.9); eGFR CKD-EPI 159.3 (>60)
[2023-05-16] MEDS ORDERED: Lorazepam PYXIS KEY PRN (13:13)
[2023-05-16] MEDS ORDERED: LORazepam 2 mg VIAL 1 ml IM ONE (13:13)
[2023-05-17] MEDS: Morphine ORAL.SOLN 10 mg 2 mg/ml UDC 5 ml (10 mg) PO PRN ×5 (04:44→22:29)
[2023-05-17] MEDS: Venlafaxine XR 75 mg PO SCH (09:20)
[2023-05-17] MEDS: Morphine ER 30 mg TAB ** extended release PO SCH ×2 (09:20→21:05)
[2023-05-17] MEDS: Magnesium Chloride EC 64 mgTAB PO SCH (09:20)
[2023-05-17] MEDS: Multivitamins/Minerals TAB PO SCH (09:20)
[2023-05-17] MEDS: Potassium Chlor 20 meq TAB.ER PO SCH (09:21)
[2023-05-17] MEDS: Polyethylene Glycol 3350 17 GM PACKET PO SCH (09:40)
[2023-05-17] MEDS: Enoxaparin 40 MG/0.4 ML SYR SUBCUT SCH ×2 (11:15→21:06)
[2023-05-18] MEDS: Morphine ORAL.SOLN 10 mg 2 mg/ml UDC 5 ml (10 mg) PO PRN ×2 (02:46→15:15)
[2023-05-18 05:49] LABS: Calcium 9.4 mg/dL (8.6-10.3); Creatinine, Serum 0.4 mg/dL (0.67-1.17); Magnesium 1.7 mg/dL (1.9-2.7); Phosphorus 5.1 mg/dL (2.5-5.0); Potassium 3.9 mmol/L (3.5-5.0); eGFR CKD-EPI 154.3 (>60)
[2023-05-18] MEDS: Venlafaxine XR 75 mg PO SCH (07:30)
[2023-05-18] MEDS: Morphine ER 30 mg TAB ** extended release PO SCH ×2 (07:31→19:29)
[2023-05-18] MEDS: Magnesium Chloride EC 64 mgTAB PO SCH (07:31)
[2023-05-18] MEDS: Multivitamins/Minerals TAB PO SCH (07:32)
[2023-05-18] MEDS: Polyethylene Glycol 3350 17 GM PACKET PO SCH (07:38)
[2023-05-18] MEDS: Potassium Chlor 20 meq TAB.ER PO SCH (07:38)
[2023-05-18] MEDS: Enoxaparin 40 MG/0.4 ML SYR SUBCUT SCH ×2 (10:20→20:49)
[2023-05-19] MEDS: Morphine ORAL.SOLN 10 mg 2 mg/ml UDC 5 ml (10 mg) PO PRN ×3 (03:24→17:13)
[2023-05-19 05:45] LABS: ABS Eosinophils 0.1 10^3/uL (0.0-0.5); ABS Neutrophils 7.4 10^3/uL (1.5-7.6); Eosinophil % 1.2 %; Hematocrit 26.4 % (38-53); Hemoglobin 8.6 g/dL (13.2-16.3); Lymphocyte % 19.2 %; Mean Corpuscular Hemoglobin 25.4 pg (27-33); Mean Corpuscular Hgb Conc 32.7 g/dL (31-36); Mean Corpuscular Volume 77.8 fL (80-97); Mean Platelet Volume 5.8 fL (7.5-11.2); Platelet Count 738 10^3/uL (150-450); Red Cell Distribution Width 18.4 % (12-17); White Blood Count 10.5 10^3/uL (3.6-10.2)
[2023-05-19 06:42] LABS: Albumin 2.8 g/dL (3.2-5.2); Albumin/Globulin Ratio 0.7 (1-3); C Reactive Protein 113.63 mg/L (<8.01); Creatinine, Serum 0.39 mg/dL (0.67-1.17); Globulin 4.3 g/dL (2-4); Phosphorus 4.9 mg/dL (2.5-5.0); Potassium 3.9 mmol/L (3.5-5.0); Total Bilirubin 0.2 mg/dL (0.2-1.0); Total Protein 7.1 g/dL (6.4-8.9); eGFR CKD-EPI 155.5 (>60)
[2023-05-19] MEDS: Magnesium Chloride EC 64 mgTAB PO SCH (09:29)
[2023-05-19] MEDS: Venlafaxine XR 75 mg PO SCH (09:29)
[2023-05-19] MEDS: Potassium Chlor 20 meq TAB.ER PO SCH (09:30)
[2023-05-19] MEDS: Multivitamins/Minerals TAB PO SCH (09:30)
[2023-05-19] MEDS: Morphine ER 30 mg TAB ** extended release PO SCH ×2 (09:31→20:24)
[2023-05-19] MEDS: Polyethylene Glycol 3350 17 GM PACKET PO SCH (09:38)
[2023-05-19] MEDS: Enoxaparin 40 MG/0.4 ML SYR SUBCUT SCH ×2 (10:25→21:09)
[2023-05-19] MEDS: Magnesium Hydroxide LIQ 30 ML UDC PO PRN (14:51)
[2023-05-20] MEDS: Morphine ORAL.SOLN 10 mg 2 mg/ml UDC 5 ml (10 mg) PO PRN ×3 (00:07→16:44)
[2023-05-20] MEDS: Magnesium Chloride EC 64 mgTAB PO SCH (10:08)
[2023-05-20] MEDS: Potassium Chlor 20 meq TAB.ER PO SCH (10:09)
[2023-05-20] MEDS: Multivitamins/Minerals TAB PO SCH (10:09)
[2023-05-20] MEDS: Venlafaxine XR 75 mg PO SCH (10:09)
[2023-05-20] MEDS: Morphine ER 30 mg TAB ** extended release PO SCH ×2 (10:10→20:46)
[2023-05-20] MEDS: Enoxaparin 40 MG/0.4 ML SYR SUBCUT SCH ×2 (10:14→20:47)
[2023-05-20] MEDS: Polyethylene Glycol 3350 17 GM PACKET PO SCH (10:16)
[2023-05-20] MEDS ORDERED: Iohexol 300 (CONTRAST) 10 ML SDV IV ONE (10:46)
[2023-05-20] MEDS ORDERED: NS 0.9% 500 ml BAG 500 ML IV ONE (19:24)
[2023-05-20] MEDS: NS 0.9% 1000 ml BAG 1,000 ML IV SCH (20:25)
[2023-05-21] MEDS: Morphine ORAL.SOLN 10 mg 2 mg/ml UDC 5 ml (10 mg) PO PRN ×3 (01:16→10:11)
[2023-05-21] MEDS: NS 0.9% 1000 ml BAG 1,000 ML IV SCH (05:33)
[2023-05-21 05:35] VITALS: BP 96/55
[2023-05-21 08:54] LABS: ABS Eosinophils 0.1 10^3/uL (0.0-0.5); ABS Lymphocytes 1.8 10^3/uL (1.0-4.8); ABS Neutrophils 8.1 10^3/uL (1.5-7.6); ABS Nucleated RBC 0.01 10^3/ul; Eosinophil % 1.2 %; Hematocrit 23.7 % (38-53); Hemoglobin 7.8 g/dL (13.2-16.3); Lymphocyte % 16.2 %; Mean Corpuscular Hemoglobin 25.5 pg (27-33); Mean Corpuscular Volume 77.4 fL (80-97); Mean Platelet Volume 5.9 fL (7.5-11.2); Platelet Count 678 10^3/uL (150-450); Red Blood Count 3.06 10^6/uL (4.06-5.63); Red Cell Distribution Width 18.6 % (12-17)
[2023-05-21] MEDS: Potassium Chlor 20 meq TAB.ER PO SCH (08:54)
[2023-05-21] MEDS: Venlafaxine XR 75 mg PO SCH (08:54)
[2023-05-21] MEDS: Multivitamins/Minerals TAB PO SCH (08:54)
[2023-05-21] MEDS: Magnesium Chloride EC 64 mgTAB PO SCH (08:54)
[2023-05-21] MEDS: Morphine ER 30 mg TAB ** extended release PO SCH (08:55)
[2023-05-21] MEDS: Enoxaparin 40 MG/0.4 ML SYR SUBCUT SCH (08:59)
[2023-05-21] MEDS ORDERED: HYDROmorphone 0.5 MG/0.5 ML SYRINGE IV ONE (09:30)
[2023-05-21 09:33] LABS: Albumin 2.6 g/dL (3.2-5.2); Calcium 8.4 mg/dL (8.6-10.3); Creatinine, Serum 0.36 mg/dL (0.67-1.17); Globulin 3.8 g/dL (2-4); Magnesium 1.7 mg/dL (1.9-2.7); Phosphorus 4.7 mg/dL (2.5-5.0); Potassium 3.6 mmol/L (3.5-5.0); Total Protein 6.4 g/dL (6.4-8.9); eGFR CKD-EPI 159.3 (>60)
[2023-05-21 09:34] LABS: Albumin/Globulin Ratio 0.7 (1-3); C Reactive Protein 122.99 mg/L (<8.01); Total Bilirubin 0.2 mg/dL (0.2-1.0)
== END 2023-05-21 10:15 | disposition short-term general hospital (02) | DRG 860 ==
LOC: PMRU 11:45
PROVIDERS: ADMIT Physical Medicine & Rehabilitation; ATTEND Physical Medicine & Rehabilitation